=== PATIENT | female | born 1980 | race American Indian/Alaskan Native ===

== ENCOUNTER 2016-06-02 12:14 | Observation (INO) | payer OTHER ==
[2016-05-31 11:45] LABS: Basophils % (Auto) 0.6 % (0.0-1.8); Eosinophils % (Auto) 1.1 % (0.0-4.3); Hematocrit 39.7 % (30.3-42.9); Hemoglobin 12.7 gm/dl (10.1-14.3); Mean Corpuscular HGB Conc 32 % (30-34); Mean Corpuscular Volume 74 fl (79-97); Platelet Count 328 K/mm3 (140-440); Red Blood Count 5.35 M/mm3 (3.65-5.03); Red Cell Distribution Width 14.5 % (13.2-15.2); White Blood Count 7.4 K/mm3 (4.5-11.0)
--- NOTE | 2016-05-31 11:47 | Anesthesia Consultation ---
Anesthesia Consult and Med Hx Date of service: 05/31/16 - Airway Anesthetic Teeth Evaluation: Good ROM Head & Neck: Adequate Mental/Hyoid Distance: Adequate Mallampati Class: Class III Intubation Access Assessment: Possibly Difficult - Pulmonary Exam CTA: Yes (blbs clear/no wheeze) - Cardiac Exam Cardiac Exam: RRR - Pre-Operative Health Status ASA Pre-Surgery Classification: ASA3 Proposed Anesthetic Plan: General Nerve Block: tap - Pulmonary Hx Asthma: Yes (uses inhalers 2x/day/no recent exacerbations/never hospitalized/ ) Hx Sleep Apnea: Yes (cpap) - Cardiovascular System Hx Coronary Artery Disease: No (abnl ekg-pt states whe excercises 3x/week and is active in job) - Central Nervous System Hx Psychiatric Problems: No - Endocrine Hx Insulin Dependent Diabetes: Yes (takes metformin as well) - Other Systems Hx Alcohol Use: Yes (occas) Hx Cancer: No Hx Obesity: Yes (bmi 37) - Additional Comments Anesthesia Medical History Comments: requested pt do neb albuterol tx am of sx
[2016-05-31 11:48] LABS: Mean Corpuscular Hemoglobin 24 pg (28-32)
[2016-05-31 12:23] LABS: Anion Gap 17 mmol/L; BUN/Creatinine Ratio 17.14; Blood Urea Nitrogen 12 mg/dL (7-17); Calcium 9.8 mg/dL (8.4-10.2); Carbon Dioxide 25 mmol/L (22-30); Chloride 97.6 mmol/L (98-107); Glucose 345 mg/dL (65-100); Potassium 4.7 mmol/L (3.6-5.0); Sodium 135 mmol/L (137-145)
--- NOTE | 2016-06-01 09:23 | Admit Criteria Form ---
Admission Criteria Documentation: AMBULATORY SURGERY EXCEPTION CRITERIA Ambulatory Surgery Exception Criteria ( Place 'X' for any and all applicable criteria): Surgery or procedure performed on ambulatory basis may require inpatient stay for[A] ANY ONE of the following(1)(2)(3)(4)(5)(6)(7)(8)(9): [X] I. A preoperative situation, condition, or finding that warrants inpatient stay as indicated by ANY ONE of the following: [] a) Inpatient care needed because of severity of a disease or condition rather than the surgery (eg, severe cardiac or respiratory disease, severe infection) (15) (16 ) (17) (18) [] b) Emergent procedure (eg, angioplasty for acute ischemia)(19) [] c) Complex surgical approach or situation as indicated by ANY ONE of the following(3): [] i) Open approach needed instead of usual endoscopic, transcatheter, or other less invasive procedure [] ii) Difficult approach because of previous operation [] iii) Airway monitoring required after open neck procedures(20)(21) [] iv) Large mass requiring unusually extensive dissection [] v) Additional complicating feature requiring inpatient care (eg, drain management)(22(23): [X] d) Major surgery in a pt with high anesthetic risk as indicated by ANY ONE of the following (2)(3)(5)(7)(8): [X] i) ASA risk class III or higher (severe systemic disease impairing function) [D] [] ii) Advanced age (eg, older than 85 years)(14)(24) [] iii) Symptomatic heart failure(25) [] iv) Symptomatic asthma or COPD(8)(21) [] v) Morbid obesity with hemodynamic or respiratory problems(20)( 21)(26)(27) [] vi) Obstructive sleep apnea(20)(21) [] vii) Former premature infants who are younger than 60 weeks [] viii) High risk for severe postoperative abnormalities (eg, severe postoperative hypocalcemia after parathyroidectomy for severe hyperparathyroidism)(27)( 28) [] ix) Unstable angina(25) [] e) Drug-related risk requiring inpatient stay as indicated by ANY ONE of the following(5)(10)(14)(32)(33) [] i) Procedure requires discontinuing drugs or other therapy (eg , antiarrhythmic medication, antiseizure medication), which necessitates inpatient observation or treatment.(18)(31) [] ii) Major surgery and high risk drug use as indicated by ANY ONE of the following: [] 1) Active abuse of cocaine or similar drug [] 2) Monoamine oxidase inhibitor use [] 3) Other drug identified as posing risk [] f) Inadequate outpatient care situation as indicated by ANY ONE of the following(5)(10)(14)(32)(33) [] i) Patient lives remote from medical facility and procedure has urgent complication potential, and temporary nearby residence cannot be arranged [] ii) Patient will have postprocedure incapacitation and inadequate assistance at home, or alternative level of care cannot be arranged. [] iii) Patient will have long general anesthesia or procedure side effect resolution time, and competent person to stay with patient on first postoperative night at home or alternative level of care cannot be arranged. []iv) Other inadequate outpatient situation that cannot be handled by other means [] II. A perioperative event, condition, or finding that warrants inpatient stay as indicated by ANY ONE of the following (1)(2)(3): [] a) Inadequate physiologic recovery: cardiovascular, respiratory, or hemodynamic status not normal or near preoperative baseline(18) [] b) Hemodynamic instability [] c) Patient not alert with near normal or baseline mental status [] d) Temperature not normal or as expected and not appropriate for outpatient treatment of condition [] e) Ambulatory or appropriate activity level status not yet achieved post procedure [E](34)(35)(36) [] f) Operative site not appropriate (eg, unexpected or excessive drainage or bleeding) [] g) Postoperative effects not resolved or adequately managed (eg, significant pain or vomiting not appropriate for outpatient or next level of care)(10)(12) [] h) Complicating features requiring inpatient care as indicated by ANY ONE of the following(37): [] i) Severe complications of procedure (eg, bowel injury, airway compromise, vascular injury,severe hemorrhage) [] ii) Extensive (eg, dissection far beyond usual scope of procedure ) or prolonged (eg, 120 minutes beyond usual) surgery needed requiring inpatient postoperative care [] iii) Conversion to an open or complex procedure that requires inpatient care (eg, open vs laparoscopic cholecystectomy, abdominal vs vaginal hysterectomy)(38) [] iv) Comorbid condition or test result identified during or post procedure that requires inpatient care (7) [] v) Malignant hyperthermia(30) [] vi) Other complicating feature requiring inpatient care(22)(23) Inpatient stay may be needed until ALL of the following are present (1)(2)(3)(4) (5)(6)(10)(14)(33)(40): []a) Physiologic recovery: cardiovascular, respiratory, and hemodynamic status normal or near preoperative baseline []b) Hemodynamic stability []c) Patient alert, with near normal or baseline mental status []d) Temperature appropriate: patient afebrile or temperature appropriate for outpt treatment of condition []e) Activity level appropriate: ambulatory or appropriate activity level post procedure []f) Operative site appropriate as indicated by ALL of the following: []i) Site dry or with expected drainage []ii) Any blood noted is as expected for procedure. []g) Postoperative effects resolved or managed as indicated by ALL of the following: []i) Pain management appropriate for outpatient (or next level of) care(10) []ii) Minimal nausea and vomiting: if present, successfully treated with oral medication(12) []iii) Headache, dizziness, or drowsiness (if present) are mild. []h) Voiding status acceptable as indicated by ANY ONE of the following: []i) Voiding spontaneously []ii) No voiding but instructions given for follow-up in 6 to 8 hours []iii) Urinary catheter in place, and instructions given for follow-up []i) Complicating features requiring inpatient care manageable at a lower level of care(37) []j) Comorbid conditions manageable at a lower level of care(37) The original [employer] content created by [employer] has been revised. The portions of the content which have been revised are identified through the use of italic text or in bold, and [facility] [employer] [employer] has neither reviewed nor approved the modified material. All other unmodified content is copyright [employer]. Please see references footnoted in the original [employer] edition 2016 Admission Criteria Met: Yes
--- NOTE | 2016-06-02 07:47 | History and Physical Report ---
History of Present Illness Date of examination: 06/02/16 Date of admission: 06/02/2016 Chief complaint: dysfunctional uterine bleeding History of present illness: 35y/o with a history of dysfunctional uterine bleeding. The patient had an ultrasound that demonstrated evidence of small leiomyomas. She reports worsening cramping and pain during her menses and reports heavy vaginal bleeding. The patient elected to undergo definitive surgical management. Past History Past Medical History: diabetes, other (asthma; anxiety; hypercholesterolemia) Past Surgical History: cholecystectomy, other (oral surgery. Bilateral tubal ligation) Social history: single - Obstetrical History : 2 Para: 2 Hx # Term Pregnancies: 2 Number of Pregnancies: 0 Spontaneous Abortions: 0 Induced : 0 Number of Living Children: 2 Medications and Allergies Allergies Allergy/AdvReac Type Severity Reaction Status Date / Time aspirin Allergy Hives Verified 05/28/16 14:25 clindamycin Allergy Hives Verified 05/28/16 14:25 Penicillins Allergy Hives Verified 05/28/16 14:25 sulfamethoxazole Allergy Hives Verified 05/28/16 14:25 [From Bactrim] sumatriptan [From Imitrex] Allergy Hives Verified 05/28/16 14:25 sumatriptan succinate Allergy Hives Verified 05/28/16 14:25 [From Imitrex] trimethoprim [From Bactrim] Allergy Hives Verified 05/28/16 14:25 Home Medications Medication Instructions Recorded Confirmed Last Taken Type ALBUTEROL Inhaler [Proair] 2 puff IH QID PRN 05/28/16 05/28/16 Unknown History Fluticasone (Nf) [Flovent Hfa(Nf)] 2 puff IH BID 05/28/16 06/02/16 06/02/16 History Insulin Glargine [Lantus] 24 unit SUB-Q QHS 05/28/16 06/02/16 05/31/16 History metFORMIN [Glucophage] 1,000 mg PO BID 05/28/16 06/02/16 06/01/16 History ALBUTEROL NEB's [Proventil] 2.5 mg IH 06/02/16 06/02/16 History Active Meds: Active Medications Sodium Chloride (Nacl 0.9% 1000 Ml) 1,000 mls @ 100 mls/hr IV DIRECT AGUILAR Review of Systems All systems: negative Genitourinary: vaginal bleeding, pelvic pain - Vital Signs Vital signs: Vital Signs Temp Pulse Resp BP 98.5 F 72 14 118/84 05/31/16 11:10 05/31/16 11:10 05/31/16 11:10 05/31/16 11:10 Temp Pulse Resp BP Pulse Ox 98.5 F 72 14 118/84 05/31/16 11:10 05/31/16 11:10 05/31/16 11:10 05/31/16 11:10 - Physical Exam Breasts: Positive: deferred Cardiovascular: Regular rate Lungs: Positive: Clear to auscultation Abdomen: Positive: normal appearance, soft Results Result Diagrams: 05/31/16 11:20 05/31/16 11:20 All other labs normal. Assessment and Plan - Patient Problems (1) Dysfunctional uterine bleeding Current Visit: Yes Status: Acute Plan to address problem: The patient is scheduled for a robotic hysterectomy and bilateral salpingo- oophorectomy (2) Dysmenorrhea Current Visit: Yes Status: Acute
[~2016-06-02 12:14] MED LIST: DILAUDID IV PRN; GARAMYCIN 160 MG in NACL 0.9% 100 ML IV SCH; NACL 0.9% 1000 ML 1,000 ML IV SCH; NEURONTIN PO NR; PEPCID PO NR; SUBLIMAZE IV NR; VANCOMYCIN/NS 1 GM/250 ML 1 GM/250 ML BAG IV NR; VERSED IV NR; ZOFRAN IV PRN
[2016-06-02] MEDS ORDERED: MARCAINE-EPI 0.25%-1:200,000 INFILTRATI ONE (13:07)
[2016-06-02] MEDS ORDERED: DECADRON ONE (13:07)
[2016-06-02] MEDS ORDERED: NEOSPORIN GU IR ONE ×2 (14:18→15:45)
[2016-06-02] MEDS ORDERED: NARCAN 0.4 MG/1 ML IV PRN (14:19)
[2016-06-02] MEDS ORDERED: MILK OF MAGNESIA PO PRN (14:20)
[2016-06-02] MEDS ORDERED: TYLENOL PO PRN (14:20)
[2016-06-02] MEDS ORDERED: PERCOCET 5/325 PO PRN (14:20)
[2016-06-02] MEDS ORDERED: MOTRIN PO PRN (14:20)
[2016-06-02] MEDS ORDERED: D50W (25GM) IV PRN (14:23)
--- NOTE | 2016-06-02 14:25 | Anesthesia Day of Surgery ---
Anesthesia Day of Surgery - Day of Surgery Patient Examined: Yes Patient H&P Reviewed: Yes Patient is NPO: Yes
[2016-06-02] MEDS ORDERED: XYLOCAINE MPF 2% ONE (14:35)
[2016-06-02] MEDS ORDERED: DIPRIVAN 10 MG/ML IV ONE (14:35)
[2016-06-02] MEDS ORDERED: DILAUDID ONE (14:35)
[2016-06-02] MEDS ORDERED: ZEMURON IV ONE (14:36)
[2016-06-02] MEDS ORDERED: MORPHINE PCA 30MG/30ML IV SCH (15:00)
[2016-06-02] MEDS ORDERED: TORADOL IV SCH (15:00)
[2016-06-02] MEDS ORDERED: LACTATED RINGERS 1,000 ML IV SCH (15:00)
[2016-06-02] MEDS ORDERED: NACL 0.9% 100 ML ONE (15:20)
[2016-06-02] MEDS ORDERED: NEO SYNEPHRINE ONE (15:20)
[2016-06-02] MEDS ORDERED: NACL 0.9% IR ONE ×2 (15:45)
[2016-06-02] MEDS ORDERED: WATER FOR IRRIG STERILE IR ONE (15:45)
[2016-06-02] MEDS ORDERED: ROBINUL ONE (15:49)
[2016-06-02] MEDS ORDERED: NEOSTIGMINE ONE (15:49)
[2016-06-02] MEDS ORDERED: ZOFRAN ONE (15:51)
--- NOTE | 2016-06-02 15:51 | Operative Report ---
Operative Report Operative Report: Date of surgery: 06/02/2016 Preoperative diagnoses: Dysfunctional uterine bleeding; menorrhagia; dysmenorrhea Postoperative diagnoses: Same as above Procedure: Robotic hysterectomy; bilateral salpingo-oophorectomy; lysis of adhesions Surgeon: Naty Rabago M.D. Cold Type Composing Machine Operator: Ken Flores Anesthesia: Gen. endotracheal anesthesia Estimated blood loss: 25 mL Pathology: Cervix, uterus, tubes and ovaries Indication: 35-year-old 002 with a history of dysfunctional uterine bleeding. The patient has failed medical management and elected to undergo definitive surgical management. Procedure: The patient was taken to the operating room and given general endotracheal anesthesia without complication. She is prepped and draped in a normal sterile fashion. A bivalve speculum was placed in the patient's vagina and a single- tooth tenaculum placed on the anterior lip of the cervix. The uterus was sounded with the uterine sound. A [employer] uterine manipulator was placed in the bivalve speculum was then removed. Attention was then turned to the patient's abdomen where a millimeter supra umbilical skin incision was then made. A Veress needle was placed and peritoneal entry was verified water-filled syringe. Insufflation of the peritoneal cavity was performed with CO2 gas. The 12 mm trocar was then placed under direct visualization. An additional 8 mm trocar was placed on the patient's left and right lateral side just opposite of the supraumbilical trocar. An additional 5 mm right lateral trocar was then placed as the accessory port. The patient was then placed in steep Trendelenburg. The da Derick robot was then engaged. The surgeon then transferred to the surgical console.General survey of the abdomen and pelvis revealed an omental adhesion to the anterior abdominal wall. The vessel sealer was used in order to coagulate and transect the adhesion. A fenestrated forcep was placed in arm 2 and a vessel sealer was placed in arm 1. The infundibulopelvic ligament was then isolated on the right. The vessel sealer was used to coagulate the infundibulopelvic ligament which was then transected. The tube and ovary were transected from the uterus. The round ligament was then coagulated and transected also. The vesicouterine peritoneum was then entered from the patient's right side. The uterine vessels were then coagulated with the vessel sealer. The vessels were then transected . Attention was then turned to the patient's left side where the infundibulopelvic ligament was again isolated coagulated and transected. The vesical peritoneum was then entered from the left and joined in the midline. Peritoneum was reflected off of the lower uterine segment. Uterine vessels were then coagulated and then transected. The blood supply to the uterus was adequately contained, a posterior colpotomy was made. The V care ring was visualized. Posterior colpotomy was created with the monopolar scissors. The incision was continued circumferentially until anterior colpotomy was made. The cervix and uterus were amputated from the vaginal cuff. The uterus was then removed along with the tubes and ovaries bilaterally through the vagina and a warm laparotomy sponge was placed and maintain the pneumoperitoneum. The vaginal cuff was then closed in a running fashion with V lock suture. Irrigation of the pelvis was performed. Tisseel was applied to the incision. The supraumbilical 12 mm trocar site was closed with the Avinash Huber device. The skin was then reapproximated with 4-0 Monocryl. The tissue was sent to pathology which included the cervix and uterus. The patient was then successfully extubated. She was then taken to the recovery room in stable condition. All sponge laps and needle counts were correct x2.
[2016-06-02] MEDS ORDERED: GLUCOPHAGE PO SCH (17:00)
--- NOTE | 2016-06-02 17:48 | Post Anesthesia Evaluation ---
- Post Anesthesia Evaluation Patient Participated: Yes Airway Patent: Yes Stable Respiratory Function: Yes Nausea/Vomiting: No Temp > 96.8F: Yes Pain Manageable: Yes Adequeate Hydration: Yes Anesthesia Complications: No
[2016-06-02] MEDS ORDERED: LEVEMIR SUB-Q SCH (22:00)
[2016-06-02] MEDS ORDERED: NOVOLOG SUB-Q ONE (23:00)
[2016-06-03 06:57] LABS: Hematocrit 39.2 % (30.3-42.9); Hemoglobin 12.5 gm/dl (10.1-14.3)
--- NOTE | 2016-06-03 08:58 | Progress Note ---
Assessment and Plan - Patient Problems (1) Dysfunctional uterine bleeding Current Visit: Yes Status: Acute Plan to address problem: Patient doing well Having gradual improvement in hyperglycemia (2) Dysmenorrhea Current Visit: Yes Status: Acute Subjective - Subjective Date of service: 06/03/16 Interval history: The patient is without any significant complaints. Her postoperative course has been significant for hyperglycemia. The patient was reinitiated on her glycemic agents. Patient reports: appetite normal, pain well controlled Objective - Vital Signs Latest vital signs: Vital Signs Temp Pulse Pulse Resp BP BP Pulse Ox 06/03/16 06:12 18 06/03/16 04:45 97.7 F 70 20 100/55 06/03/16 00:20 97.9 F 73 20 109/57 06/02/16 20:39 18 06/02/16 19:55 98.3 F 88 18 120/75 06/02/16 18:30 98.3 F 93 H 16 106/59 06/02/16 18:00 98.7 F 89 17 104/62 96 06/02/16 17:45 88 17 107/57 96 06/02/16 17:30 79 18 100/60 95 06/02/16 17:15 92 H 18 98/56 95 06/02/16 17:00 76 19 104/61 96 06/02/16 16:45 75 16 93/48 100 06/02/16 16:30 70 17 110/63 100 06/02/16 16:17 73 17 87/44 98 06/02/16 16:12 72 17 87/45 98 06/02/16 16:07 79 18 80/48 97 06/02/16 13:48 94 H 17 141/83 97 06/02/16 13:38 86 16 132/76 97 06/02/16 13:33 87 24 121/71 99 06/02/16 13:27 76 17 122/72 100 06/02/16 13:22 81 15 132/73 99 06/02/16 13:18 77 17 123/81 98 06/02/16 13:08 68 16 130/92 98 06/02/16 13:05 74 12 133/91 97 06/02/16 12:15 98.2 F 78 16 130/81 98 06/02/16 12:11 98.2 F 78 16 130/81 98 Intake and Output 06/02/16 06/03/16 06/03/16 22:59 06:59 14:59 Intake Total 490 1240 Output Total 550 2200 Balance -60 -960 Intake: IV 250 1000 Lactated Ringers 1,000 ml 250 1000 @ 125 mls/hr IV DIRECT AGUILAR Rx#:[id number] Oral 240 240 Output: Urine 550 2200 Indwelling Catheter 2200 Uretheral (Mathew) 300 Other: Total, Intake Amount 240 120 Total, Output Amount 700 - Exam Abdomen: Present: normal appearance, soft Incision: Present: normal, dry - Labs Labs: Abnormal lab results 06/02/16 06/02/16 06/02/16 Range/Units 12:42 13:52 22:17 POC Glucose 295 H 239 H 391 H (70-105) 06/03/16 Range/Units 08:36 POC Glucose 277 H (70-105)
--- NOTE | 2016-06-03 09:00 | Discharge Summary ---
Providers - Providers Date of Admission: 06/02/16 14:20 Date of discharge: 06/03/16 Attending physician: EMERALD ARANA Primary care physician: AZALEA PEPPER Hospitalization Reason for admission: other (dysfunctional uterine bleeding; dysmenorrhea) Procedure: other (robotic hysterectomy and bilateral salpingo-oophorectomy) Incision: normal, dry Discharge diagnosis: other (dysfunctional uterine bleeding; dysmenorrhea) Hospital course: The patient was admitted the day of surgery and underwent a robotic hysterectomy and bilateral salpingo-oophorectomy. Her postoperative course was significant for hyperglycemia. Please see operative note for details of surgery. The patient was discharged home when she met discharge criteria Condition at discharge: Good Disposition: DISCHARGED TO HOME OR SELFCARE - Discharge Diagnoses (1) Dysfunctional uterine bleeding Status: Acute (2) Dysmenorrhea Status: Acute Plan - Discharge Medications Prescriptions: Docusate Sodium [Colace] 100 mg PO BID PRN #60 capsule PRN Reason: Constipation Ibuprofen [Motrin] 800 mg PO Q8HR PRN #60 tablet PRN Reason: Pain Oxycodone HCl/Acetaminophen [Percocet 7.5/325 mg] 1 each PO Q6HR PRN #45 tablet PRN Reason: Pain - Provider Discharge Summary Activity: no sex for 6 weeks, no heavy lifting 4 weeks, no strenuous exercise Diet: routine Instructions: routine Additional instructions: [] Smoking cessation referral if applicable(refer to patient education folder for contact #) [] Refer to [facility]'s [facility] Booklet Call your doctor immediately for: * Fever > 100.5 * Heavy vaginal bleeding ( >1 pad per hour) * Severe persistent headache * Shortness of breath * Reddened, hot, painful area to leg or breast * Drainage or odor from incision. * Keep incision clean and dry at all times and follow doctor's instructions regarding bathing/showering Follow-up in [address] Mancera - Follow up plan
--- NOTE | 2016-06-03 09:03 | Progress Note ---
Subjective Date of service: 06/03/16 Interval history: 1st POD after total robotic hysterectomy Patient is in the bed, comfortable. Pain is well controlled with pain meds. Ambulated well. No nausea or vomiting. No anesthesia complication Objective - Constitutional Vitals: Vital Signs - 12hr 06/03/16 06/03/16 06/03/16 00:20 04:45 06:12 Temperature 97.9 F 97.7 F Pulse Rate [ 73 70 From Monitor] Respiratory 20 20 18 Rate Blood Pressure 109/57 100/55 [Right Arm] - Labs CBC & Chem 7: 06/03/16 06:20 05/31/16 11:20 Labs: Abnormal lab results 06/02/16 06/02/16 06/02/16 Range/Units 12:42 13:52 22:17 POC Glucose 295 H 239 H 391 H (70-105) 06/03/16 Range/Units 08:36 POC Glucose 277 H (70-105)
[2016-06-03] MEDS: NOVOLOG SUB-Q SCH ×2 (09:07→12:27)
[2016-06-03 13:35] VITALS: BP 103/61
== END 2016-06-03 14:37 | disposition home or self-care (01) ==
LOC: OR 12:14 → OB 14:20
PROVIDERS: ADMIT Obstetrics & Gynecology; ATTEND Obstetrics & Gynecology
DX: N93.8 Other specified abnormal uterine and vaginal bleeding (principal); N94.6 Dysmenorrhea, unspecified
CPT/HCPCS: 36415; 58571; 64450; 80048; 82962; 84703; 85014; 85018; 85025; 86850; 86900; 86901; 88307; 96365; 96372; 96375; A4217; C9250; G0378; J1100; J1170; J1580; J1885; J2250; J2270; J2370; J2405; J2704; J2710; J3010; J3370; J7030; J7120; S2900; J1815; J1818